=== PATIENT | female | born 1980 | race Caucasian/White ===

== ENCOUNTER 2021-07-07 11:02 | Inpatient (IN) | payer BC ==
[~2021-07-07] VITALS: Ht 157.5 cm; Wt 45.4 kg
[2021-07-07 11:45] LABS: COLLECTION METHOD CLEAN CATCH
[2021-07-07 11:51] LABS: BASO % 0.2 % (0.0-2.0); EOS % 0.2 % (0-4.0); GRAN # 13.7 K/mm3 (1.4-6.5); GRAN % 83.3 % (42.2-75.2); HEMATOCRIT 41.6 % (37.0-47.0); HEMOGLOBIN 14.2 g/dl (12.5-16.0); LYMPH # 1.4 K/mm3 (1.2-3.4); LYMPH % 8.7 % (20.0-51.0); MEAN CELL VOLUME 92 fl (80.0-100.0); MEAN CORPUSCULAR HEMOGLOBIN 31 pg (27.0-31.0); MEAN CORPUSCULAR HGB CONC 34 g/dl (33.0-37.0); MEAN PLATELET VOLUME 9.1 fl (7.4-10.4); MONO # 1.2 K/mm3 (0.1-0.6); PLATELET COUNT 228 K/mm3 (130-400); RED BLOOD COUNT 4.53 M/mm3 (4.10-5.30); REDCELL DISTRIBUTION WIDTH-CV 11.9 % (11.5-14.5)
[2021-07-07 11:56] LABS: MUCOUS Present /lpf; PH 5 (5-8); URINE APPEARANCE Cloudy; URINE BACTERIA Rare /hpf; URINE BILIRUBIN Negative (NEGATIVE); URINE BLOOD 2+ (NEGATIVE); URINE COLOR Yellow; URINE GLUCOSE Negative (NEGATIVE); URINE KETONE Trace (NEGATIVE); URINE LEUKOCYTE ESTERASE 2+ (NEGATIVE); URINE NITRATE Negative (NEGATIVE); URINE PROTEIN(semi-quant) 1+ (NEGATIVE); URINE UROBILINOGEN Negative (NEGATIVE)
[2021-07-07 12:06] LABS: ALBUMIN 3.9 gm/dL (3.5-5.0); BILIRUBIN,TOTAL 0.6 mg/dL (0.2-1.2); C-REACTIVE PROTEIN 7.42 mg/dL (0.00-0.50); CALCIUM 9.8 mg/dL (8.4-10.2); POTASSIUM 3.4 mmol/L (3.5-4.5); TOTAL PROTEIN 7.7 gm/dL (6.2-8.1)
[2021-07-07 12:09] LABS: CREATININE, serum 0.71 mg/dL (0.57-1.11)
[2021-07-07 16:09] VITALS: BP 112/66; PULSE 75; TEMP 99.4
--- NOTE | 2021-07-07 16:15 | NUR ---
Pt. admitted to room 357. Pt. alert and able to answer questions. Pt. reports 5/10 pain but reports it is tolerable at this time. Pt. inquiring about ordering dinner. RAMAKRISHNA Gay in to see the patient at this time. Pt. oriented to the room, i.e. call light, telephone, as well as bed controls. Pt. denies further needs at this time. Call light and belongings in reach. Pt. refusing to wear SCDs which are ordered, RAMAKRISHNA Gay notified [id number].
--- NOTE | 2021-07-07 17:42 | NUR ---
Repeat lactic ordered, lab was unable to be obtained. Dr. Ibanez notified, Dr. Ibanez reports we can discontinue the most recent lactic.
--- NOTE | 2021-07-07 18:50 | NUR ---
PRN morphine given this evening w/ minimal effect. PRN [place] given, effect pending. Pt. denies needs at this time.
[2021-07-07 20:37] VITALS: BP 110/63; PULSE 78; TEMP 98.3
[2021-07-07 23:55] VITALS: BP 107/61; PULSE 95; TEMP 99
[2021-07-08 04:26] VITALS: BP 113/65; PULSE 93; TEMP 99.1
[2021-07-08 07:04] LABS: BASO % 0.2 % (0.0-2.0); EOS # 0.1 K/mm3 (0.0-0.7); EOS % 0.6 % (0-4.0); GRAN # 9.2 K/mm3 (1.4-6.5); GRAN % 76.3 % (42.2-75.2); LYMPH # 1.5 K/mm3 (1.2-3.4); LYMPH % 12.2 % (20.0-51.0); MEAN CELL VOLUME 93 fl (80.0-100.0); MEAN CORPUSCULAR HGB CONC 34 g/dl (33.0-37.0); MEAN PLATELET VOLUME 9.9 fl (7.4-10.4); MONO # 1.2 K/mm3 (0.1-0.6); MONO % 10.3 % (1.7-9.3); PLATELET COUNT 166 K/mm3 (130-400); RED BLOOD COUNT 3.71 M/mm3 (4.10-5.30); REDCELL DISTRIBUTION WIDTH-CV 11.8 % (11.5-14.5)
[2021-07-08 07:07] LABS: HEMATOCRIT 34.4 % (37.0-47.0); HEMOGLOBIN 11.7 g/dl (12.5-16.0); MEAN CORPUSCULAR HEMOGLOBIN 32 pg (27.0-31.0)
--- NOTE | 2021-07-08 07:11 | NUR ---
Patient has been stable along the night but complaining about constant pain. PRN meds provided. All needs met. Shift report given to dayshift nurse.
[2021-07-08 07:17] LABS: CALCIUM 8.9 mg/dL (8.4-10.2); CREATININE, serum 0.61 mg/dL (0.57-1.11); POTASSIUM 4.1 mmol/L (3.5-4.5)
[2021-07-08 08:45] VITALS: BP 106/58; PULSE 91; TEMP 99.4
--- NOTE | 2021-07-08 08:58 | NUR ---
Pt. progressing w/ plan of care. Assessment complete. PRN [place] administered, effect pending. Pt. denies other needs at this time. Plan to ask for PRN laxative when provider rounds this AM. Call light and belongings in reach.
[2021-07-08 11:52] VITALS: BP 111/69; PULSE 87; TEMP 98.6
[2021-07-08 16:50] VITALS: BP 113/71; PULSE 92; TEMP 100.7
--- NOTE | 2021-07-08 20:00 | NUR ---
Patient is resting in bed, alert and oriented x 4, states her pain is nothing compared to yestereday. Tylenol provided for headache. Assessment completed, medications provided. No further needs at this time. Call light within reach.
[2021-07-08 22:59] VITALS: BP 99/59; PULSE 74; TEMP 98
--- NOTE | 2021-07-09 03:49 | NUR ---
Patient requested PRN opiod med rating pain 7/10. Provided.
[2021-07-09 06:08] VITALS: BP 105/61; PULSE 72; TEMP 97.9
--- NOTE | 2021-07-09 06:39 | NUR ---
Patient was stable along the night until her pain came back. PRN provided. Continues with the antibiotics. Shift report will be given to day shift nurse.
[2021-07-09 07:04] LABS: POTASSIUM 3.8 mmol/L (3.5-4.5)
--- NOTE | 2021-07-09 07:21 | NUR ---
REPORT RECIEVED FROM ALTERATIONS SUPERVISOR. PT RESTING IN BED. NO COMPLAINTS OF PAIN OR DYSPNEA. NO SIGNS OF DISTRESS. CALL LIGHT WITHIN REACH
[2021-07-09 07:24] VITALS: BP 114/73; PULSE 88; TEMP 97.4
[2021-07-09 08:18] LABS: HEMATOCRIT 37.6 % (37.0-47.0); MEAN CELL VOLUME 90 fl (80.0-100.0); MEAN CORPUSCULAR HEMOGLOBIN 31 pg (27.0-31.0); MEAN CORPUSCULAR HGB CONC 35 g/dl (33.0-37.0); MEAN PLATELET VOLUME 9.9 fl (7.4-10.4); PLATELET COUNT 204 K/mm3 (130-400); RED BLOOD COUNT 4.16 M/mm3 (4.10-5.30); REDCELL DISTRIBUTION WIDTH-CV 11.8 % (11.5-14.5)
--- NOTE | 2021-07-09 09:42 | NUR ---
PT ASSESSED. NO COMPLAINTS OF PAIN OR DYSPNEA. NO SIGNS OF DISTRESS. CALL LIGHT WITHIN REACH
[2021-07-09 10:10] LABS: CALCIUM 9.4 mg/dL (8.4-10.2); CREATININE, serum 0.64 mg/dL (0.57-1.11)
[2021-07-09 11:16] VITALS: BP 102/61; PULSE 89; TEMP 98.5
--- NOTE | 2021-07-09 11:49 | NUR ---
First visit from the solution developer. No needs right now.
--- NOTE | 2021-07-09 15:49 | NUR ---
Technical Support Consultant met with patient to discuss discharge planning. Patient lives in [place] with her parents, Faith and Bry and sees Dr. Ling for primary care. Patient obtains [facility] from [facility] with no difficulties and does not use any DME. Patient is independent with ADLS and plans to return home upon discharge. Patient states she thinks she did a DPOA-HC at work designating her daughters, Ramya and Gregoria Olivas. Discharge Plan: Home
[2021-07-09 15:57] VITALS: BP 113/68; PULSE 95; TEMP 98.8
--- NOTE | 2021-07-09 18:20 | NUR ---
PT CONTINUES TO REST IN BED. IV ANTIBIOTIC INFUSION COMPLETE. NO NEEDS OR CONCERNS AT THIS TIME. CALL LIGHT WITHIN REACH
--- NOTE | 2021-07-09 20:00 | NUR ---
Patient is resting in bed, alert and oriented x 4, VSS, reports headache, Tylenol provided. Asked for more PRN pain medication, waiting for the time as EMAR. Assessment completed, medications provided. No further needs at this time. Call light within reach.
[2021-07-09 21:06] VITALS: BP 95/47; PULSE 71; TEMP 98.6
[2021-07-10 00:28] VITALS: BP 108/66; PULSE 75; TEMP 98.5
[2021-07-10 04:31] VITALS: BP 114/65; PULSE 77; TEMP 98
--- NOTE | 2021-07-10 05:45 | NUR ---
Patient has had a calm night. Continues with pain, PRN provided. All needs met. Shift report will be given to day RN.
[2021-07-10 07:13] VITALS: BP 98/56; PULSE 73; TEMP 97.6
[2021-07-10 07:35] LABS: HEMATOCRIT 39.7 % (37.0-47.0); HEMOGLOBIN 13.5 g/dl (12.5-16.0); MEAN CELL VOLUME 91 fl (80.0-100.0); MEAN CORPUSCULAR HEMOGLOBIN 31 pg (27.0-31.0); MEAN CORPUSCULAR HGB CONC 34 g/dl (33.0-37.0); MEAN PLATELET VOLUME 9.1 fl (7.4-10.4); PLATELET COUNT 237 K/mm3 (130-400); RED BLOOD COUNT 4.38 M/mm3 (4.10-5.30); REDCELL DISTRIBUTION WIDTH-CV 11.6 % (11.5-14.5)
[2021-07-10 07:58] LABS: CALCIUM 9.5 mg/dL (8.4-10.2); CREATININE, serum 0.64 mg/dL (0.57-1.11); POTASSIUM 4.4 mmol/L (3.5-4.5)
[2021-07-10] MEDS ORDERED: LEVAQUIN 750MG750 M1 PO (09:02)
--- NOTE | 2021-07-10 09:24 | NUR ---
Scheduled medications given. Shift assessment performed. Patient states she has aching abdominal pain rated a 5/10. States that it is at manageable level at this time. Patient refused miralax and stool softner, stating that she did not require them at this time. Patient denies any further pain, discomfort, SOA, or further needs at this time. Call light in reach. VSS. Patient A&O.
--- NOTE | 2021-07-10 10:32 | NUR ---
Supervisor [employer]ling [employer] Joining attended clinical rounds and patient to discharge home today.
--- NOTE | 2021-07-10 11:45 | NUR ---
Patient deemed fit for discharge. IV DC'd, catheter intact, no signs of phlebitis. Discharge instructions/education given. All questions and concerns answered. Patient denies any pain, discomfort, SOA, or any further needs at this time. VSS. Patient A&O. Patient ambulated from building escorted by [facility] Staff. Patient transporting herself home.
[2021-07-10 12:06] VITALS: BP 100/60; PULSE 70; TEMP 97.9
== END 2021-07-10 12:00 | disposition home or self-care (01) | DRG 872 ==
LOC: COL.ER 11:02 → MEDICAL 13:37
PROVIDERS: Nurse Practitioner Primary Care; Physician Assistant; ADMIT Student in an Organized Health Care Education/Training Program
DX: A41.9 Sepsis, unspecified organism (principal); N12 Tubulo-interstitial nephritis, not specified as acute or chronic; F17.210 Nicotine dependence, cigarettes, uncomplicated; E87.6 Hypokalemia; K59.00 Constipation, unspecified; B95.2 Enterococcus as the cause of diseases classified elsewhere
CPT/HCPCS: 99222-AI; 99232-AI; 99239; J1885; J2270; J2405; J2543; J7030; Q9967